=== PATIENT | male | born 1955 | race African-American/Black ===

== ENCOUNTER 2022-09-24 15:43 | Inpatient (IN) | payer MEDICARE, BC ==
[~2022-09-24] VITALS: Ht 177.8 cm; Wt 78.5 kg
[~2022-09-24 15:43] MED LIST: AMA4 PO; ASPI-1406 PO; CETI5TAB5 PO; CRES10 PO; DILT180C51 PO; ICOS1CAP PO; LEVO50TA PO; METO25TA6 PO; MONT10TA21 PO; TICA90TA PO; XAR15 PO
[2022-09-24] MEDS ORDERED: SODIUM CHLORIDE 0.9% 250 ML IV ONE (22:45)
[2022-09-24 23:02] LABS: BASOPHILS % 0.3 % (0.0-2.0); EOSINOPHILS % 0.6 % (0.0-5.0); HEMATOCRIT. 44.9 % (42.0-52.0); HEMOGLOBIN. 14.9 g/dL (14.0-18.0); LYMPHOCYTES % 15.1 % (20.0-50.0); MEAN CORPUSCULAR HEMOGLOBIN 25.5 pg (28.0-32.0); MEAN CORPUSCULAR VOLUME 76.9 fL (80.0-94.0); MEAN PLATELET VOLUME 7.1 fl (7.4-10.4); MONOCYTES % 11.5 % (2.0-8.0); NEUTROPHILS % 72.5 % (40.0-76.0); PLATELET 317 x1000/uL (130-400); RED BLOOD CELL COUNT 5.84 mill/uL (4.7-6.1); RED CELL DISTRIBUTION WIDTH 14.6 % (11.6-14.6)
[2022-09-24 23:05] LABS: CHLORIDE 101 mEq/L (98-107)
[2022-09-24 23:16] LABS: ETHANOL BLOOD < 10 mg/dL
[2022-09-25] VITALS (9 sets, daily range): BP systolic 126–141; BP diastolic 70–95
[2022-09-25] MEDS ORDERED: ASPIRIN 325MG EC TABLET PO NR (01:15)
[2022-09-25] MEDS ORDERED: DILTIAZEM HCL 5MG/ML 5ML VIAL IV ONE (01:45)
[2022-09-25] MEDS ORDERED: DILTIAZEM HCL 120MG CAPSULE ER 24HR PO ONE (03:00)
[2022-09-25 04:16] LABS: *AMPHETAMINES SCREEN URINE NEGATIVE (NEGATIVE); *BARBITURATES SCREEN URINE NEGATIVE (NEGATIVE); *BENZODIAZEPINES SCREEN URINE NEGATIVE (NEGATIVE); *COCAINE SCREEN URINE NEGATIVE (NEGATIVE); CANNABINOID URINE SCREEN NEGATIVE (NEGATIVE); METHADONE URINE SCREEN NEGATIVE (NEGATIVE); OPIATES URINE SCREEN NEGATIVE (NEGATIVE); PHENCYCLIDINE URINE SCREEN NEGATIVE (NEGATIVE)
[2022-09-25] MEDS ORDERED: ACETAMINOPHEN 650MG/20.3ML UDC PO PRN (08:15)
[2022-09-25] MEDS ORDERED: ONDANSETRON HCL 4MG/2ML INJ IV PRN (08:15)
[2022-09-25] MEDS ORDERED: DEXTROSE 50% WATER 50ML SYRINGE IV PRN (08:15)
[2022-09-25] MEDS ORDERED: CLONIDINE 0.1MG TABLET PO PRN (08:45)
[2022-09-25] MEDS ORDERED: ASPIRIN 81MG TABLET PO SCH (09:00)
[2022-09-25] MEDS: TICAGRELOR 90 MG TABLET PO SCH ×3 (09:00→17:25)
[2022-09-25] MEDS ORDERED: ENOXAPARIN 40MG/0.4ML SYR SUBCUT SCH (09:00)
[2022-09-25] MEDS ORDERED: CETIRIZINE 10MG TABLET PO SCH (09:30)
[2022-09-25] MEDS ORDERED: NALOXONE HCL 0.4MG/ML VIAL IV PRN (09:45)
[2022-09-25] MEDS: METOPROLOL TARTRATE 25MG TABLET PO SCH ×2 (09:54→20:53)
[2022-09-25] MEDS ORDERED: DICL50TA7 PO (09:54)
[2022-09-25] MEDS: DILTIAZEM HCL 180MG CAPSULE CD 24HR PO SCH (09:55)
[2022-09-25] MEDS: TRAMADOL 50MG TABLET PO PRN ×2 (09:55→21:02)
[2022-09-25 11:09] LABS: BASOPHILS % 0.3 % (0.0-2.0); EOSINOPHILS % 0.3 % (0.0-5.0); HEMOGLOBIN. 13.4 g/dL (14.0-18.0); LYMPHOCYTES % 11.5 % (20.0-50.0); MEAN CORPUSCULAR HEMOGLOBIN 25.2 pg (28.0-32.0); MEAN CORPUSCULAR VOLUME 77.3 fL (80.0-94.0); MEAN PLATELET VOLUME 7.2 fl (7.4-10.4); MONOCYTES % 7.8 % (2.0-8.0); NEUTROPHILS % 80.1 % (40.0-76.0); PLATELET 274 x1000/uL (130-400); RED CELL DISTRIBUTION WIDTH 15.4 % (11.6-14.6)
[2022-09-25 11:16] LABS: CHLORIDE 100 mEq/L (98-107)
[2022-09-25] MEDS: BLOOD SUGAR DIAGNOSTIC STRIP TEST SCH ×3 (11:50→20:54)
[2022-09-25] MEDS: INSULIN LISPRO 100 UNITS/ML SUBCUT SCH ×3 (12:09→20:52)
[2022-09-25] MEDS: DICLOFENAC SODIUM 50 MG DR TABLET PO SCH (17:25)
[2022-09-25] MEDS ORDERED: RIVAROXABAN 15 MG TABLET PO SCH (21:00)
[2022-09-25] MEDS ORDERED: MONTELUKAST SODIUM 10MG TABLET PO SCH (21:00)
[2022-09-26] VITALS: BP 108/58
[2022-09-26] MEDS ORDERED: ACETAMINOPHEN 325MG TABLET PO PRN ×2 (00:15)
[2022-09-26 04:00] VITALS: BP 115/59
[2022-09-26] MEDS ORDERED: LEVOTHYROXINE SODIUM 50MCG TABLET PO SCH (06:50)
[2022-09-26] MEDS: BLOOD SUGAR DIAGNOSTIC STRIP TEST SCH ×3 (07:04→16:18)
[2022-09-26 07:30] VITALS: BP 132/79
[2022-09-26] MEDS: METOPROLOL TARTRATE 25MG TABLET PO SCH (07:55)
[2022-09-26] MEDS: TRAMADOL 50MG TABLET PO PRN (07:55)
[2022-09-26] MEDS: DILTIAZEM HCL 180MG CAPSULE CD 24HR PO SCH (07:55)
[2022-09-26] MEDS: TICAGRELOR 90 MG TABLET PO SCH (07:56)
[2022-09-26] MEDS: DICLOFENAC SODIUM 50 MG DR TABLET PO SCH ×2 (07:56→16:41)
[2022-09-26] MEDS: INSULIN LISPRO 100 UNITS/ML SUBCUT SCH ×3 (07:56→17:32)
[2022-09-26 10:52] VITALS: BP 118/65
[2022-09-26] MEDS ORDERED: CLOPIDOGREL 75MG TABLET PO SCH (11:45)
[2022-09-26 15:00] VITALS: BP 138/57
[2022-09-26] MEDS ORDERED: DIGOXIN 500MCG/2ML AMP IV NR (16:00)
[2022-09-26] MEDS ORDERED: DILT120C88 PO (16:23)
[2022-09-26 17:18] VITALS: BP 137/76
[2022-09-27] MEDS ORDERED: DILTIAZEM HCL 120MG CAPSULE ER 24HR PO SCH (09:00)
== END 2022-09-26 23:23 | disposition home or self-care (01) | DRG 282 ==
LOC: ER 15:43 → 3WST 09-25 01:15 → EDBEDREQTM 09-25 01:26 → EDBEDREQ 09-25 01:26 → ENRESERV 09-25 03:57
PROVIDERS: ADMIT Internal Medicine; ATTEND Internal Medicine
DX: I48.19 Other persistent atrial fibrillation (principal); I21.A1 Myocardial infarction type 2; E11.65 Type 2 diabetes mellitus with hyperglycemia; E78.00 Pure hypercholesterolemia, unspecified; E03.9 Hypothyroidism, unspecified; I25.10 Atherosclerotic heart disease of native coronary artery without angina pectoris; J45.909 Unspecified asthma, uncomplicated; Z20.822 Contact with and (suspected) exposure to COVID-19; E78.5 Hyperlipidemia, unspecified; I35.0 Nonrheumatic aortic (valve) stenosis; I10 Essential (primary) hypertension; R77.8 Other specified abnormalities of plasma proteins; Z95.5 Presence of coronary angioplasty implant and graft; Z79.899 Other long term (current) drug therapy
CPT/HCPCS: 36415; 71045; 80053; 80305; 80320; 82962; 83036; 83880; 84484; 85025; 87426; 93005; 99285; J1160; J1815; J3490; J7050; G0480; J8499

== ENCOUNTER 2023-01-01 11:59 | Inpatient (IN) | payer MEDICARE, BC ==
[~2023-01-01] VITALS: Ht 177.8 cm; Wt 60.3 kg
[~2023-01-01 11:59] MED LIST changes: -ASPI-1406 PO; +DICL50TA7 PO; +DILT120C88 PO; +MONT-46 PO; -MONT10TA21 PO; -TICA90TA PO
[2023-01-01 13:08] LABS: BASOPHILS % 0.1 % (0.0-2.0); HEMATOCRIT. 30.4 % (42.0-52.0); HEMOGLOBIN. 9.8 g/dL (14.0-18.0); LYMPHOCYTES % 10.8 % (20.0-50.0); MEAN CORPUSCULAR HEMOGLOBIN 23.1 pg (28.0-32.0); MEAN CORPUSCULAR VOLUME 71.6 fL (80.0-94.0); MEAN PLATELET VOLUME 6.6 fl (7.4-10.4); MONOCYTES % 4.7 % (2.0-8.0); NEUTROPHILS % 84.4 % (40.0-76.0); PLATELET 410 x1000/uL (130-400); RED BLOOD CELL COUNT 4.24 mill/uL (4.7-6.1); RED CELL DISTRIBUTION WIDTH 20.6 % (11.6-14.6)
[2023-01-01 13:10] LABS: CHLORIDE 99 mEq/L (98-107)
[2023-01-01 13:21] LABS: INR 1.3; PROTHROMBIN TIME 13.9 sec (9.6-11.0)
[2023-01-01] MEDS ORDERED: IOHEXOL-300 100 ML BOTTLE ONE (14:37)
[2023-01-01 18:00] VITALS: BP 101/62
[2023-01-01] MEDS ORDERED: APIX5TAB PO (18:01)
[2023-01-01] MEDS ORDERED: LEVO100T9 PO (18:01)
[2023-01-01] MEDS ORDERED: DEXA1TAB PO (18:01)
[2023-01-01] MEDS ORDERED: AMI2 PO (18:01)
[2023-01-01] MEDS ORDERED: DEXTL MT (18:01)
[2023-01-01] MEDS ORDERED: OMEP20CA14 PO (18:01)
[2023-01-01] MEDS ORDERED: CLONIDINE 0.1MG TABLET PO PRN (18:30)
[2023-01-01] MEDS ORDERED: ONDANSETRON HCL 4MG/2ML INJ IV PRN (18:30)
[2023-01-01] MEDS ORDERED: ACETAMINOPHEN 325MG TABLET PO PRN ×2 (18:30)
[2023-01-01] MEDS ORDERED: DEXTROSE 50% WATER 50ML SYRINGE IV PRN (18:30)
[2023-01-01] MEDS ORDERED: IPRATROPIUM/ALBUTEROL 0.5-3(2.5)MG/3ML NEB NEB PRN (18:30)
[2023-01-01] MEDS ORDERED: DIPHENHYDRAMINE 50MG/ML VIAL IV PRN (18:30)
[2023-01-01] MEDS ORDERED: MAGNESIUM/ALUMINUM HYDROXIDE/SIMETHICONE 30ML UDC PO PRN (18:30)
[2023-01-01] MEDS ORDERED: GUAIFENESIN 200MG/10ML SUGAR FREE UDC PO PRN (18:30)
[2023-01-01] MEDS ORDERED: ALBUTEROL (0.083%) 2.5MG/3ML NEB HHN PRN (19:15)
[2023-01-01] MEDS ORDERED: IPRATROPIUM BROMIDE (0.02%) 0.5MG/2.5ML NEB HHN PRN (19:15)
[2023-01-01 20:00] VITALS: BP 98/66
[2023-01-01] MEDS: BLOOD SUGAR DIAGNOSTIC STRIP TEST SCH (20:19)
[2023-01-01] MEDS: INSULIN LISPRO 100 UNITS/ML SUBCUT SCH (20:19)
[2023-01-01] MEDS: SODIUM CHLORIDE 0.9% 1,000 ML IV SCH (20:39)
[2023-01-01] MEDS: OMEPRAZOLE 20MG CAPSULE EXTENDED RELEASE PO SCH (20:39)
[2023-01-02] VITALS (10 sets, daily range): BP systolic 91–133; BP diastolic 49–76
[2023-01-02 06:35] LABS: BASOPHILS % 0.2 % (0.0-2.0); HEMATOCRIT. 32.7 % (42.0-52.0); HEMOGLOBIN. 10.7 g/dL (14.0-18.0); LYMPHOCYTES % 14.2 % (20.0-50.0); MEAN CORPUSCULAR HEMOGLOBIN 23.9 pg (28.0-32.0); MEAN CORPUSCULAR VOLUME 72.9 fL (80.0-94.0); MONOCYTES % 6.2 % (2.0-8.0); NEUTROPHILS % 79.4 % (40.0-76.0); PLATELET 344 x1000/uL (130-400); RED BLOOD CELL COUNT 4.49 mill/uL (4.7-6.1); RED CELL DISTRIBUTION WIDTH 19.7 % (11.6-14.6)
[2023-01-02] MEDS: BLOOD SUGAR DIAGNOSTIC STRIP TEST SCH ×4 (06:43→20:51)
[2023-01-02 07:15] LABS: CHLORIDE 103 mEq/L (98-107)
[2023-01-02 07:29] LABS: PHOSPHORUS 3.3 mg/dL (2.5-4.9)
[2023-01-02] MEDS: INSULIN LISPRO 100 UNITS/ML SUBCUT SCH ×4 (08:10→20:51)
[2023-01-02] MEDS: DEXAMETHASONE 2MG TABLET PO SCH (08:16)
[2023-01-02] MEDS: OMEPRAZOLE 20MG CAPSULE EXTENDED RELEASE PO SCH ×2 (08:16→20:50)
[2023-01-02] MEDS: AMIODARONE HCL 200 MG TABLET PO SCH (08:16)
[2023-01-02] MEDS: LEVOTHYROXINE SODIUM 100MCG TABLET PO SCH (08:20)
[2023-01-02] MEDS: SODIUM CHLORIDE 0.9% 1,000 ML IV SCH ×2 (08:20→16:17)
[2023-01-02] MEDS ORDERED: NON FORMULARY PATIENT HOME MED XX ONE (09:00)
[2023-01-02] MEDS ORDERED: DILTIAZEM HCL 60MG TABLET PO SCH ×2 (09:00→09:30)
[2023-01-02] MEDS ORDERED: METO-411 PO (09:27)
[2023-01-02] MEDS ORDERED: DILTIAZEM HCL 120MG CAPSULE ER 24HR PO SCH (09:30)
[2023-01-02] MEDS ORDERED: DILTIAZEM HCL 5MG/ML 5ML VIAL IV SCH (10:00)
[2023-01-02] MEDS: METOPROLOL TARTRATE 100MG TABLET PO SCH ×3 (10:28→20:51)
[2023-01-02] MEDS ORDERED: POTASSIUM CHLORIDE 20MEQ/PACKET PO SCH (11:00)
[2023-01-02] MEDS ORDERED: MAGNESIUM 2 G PREMIX 50 ML IV SCH (12:00)
[2023-01-02] MEDS: CLOPIDOGREL 75MG TABLET PO SCH (12:02)
[2023-01-02] MEDS ORDERED: METOPROLOL TARTRATE 100MG TABLET PO SCH (14:00)
[2023-01-02] MEDS: MONTELUKAST SODIUM 10MG TABLET PO SCH (16:17)
[2023-01-02] MEDS ORDERED: NA PHOS,M-B/NA PHOS,DI-BA ENEMA 118ML PR NR ×2 (18:30→20:00)
[2023-01-03] VITALS: BP 141/76
[2023-01-03] MEDS: SODIUM CHLORIDE 0.9% 1,000 ML IV SCH ×3 (01:15→21:59)
[2023-01-03 04:00] VITALS: BP 116/73
[2023-01-03] MEDS: BLOOD SUGAR DIAGNOSTIC STRIP TEST SCH ×4 (05:54→21:00)
[2023-01-03] MEDS: INSULIN LISPRO 100 UNITS/ML SUBCUT SCH ×4 (05:54→21:59)
[2023-01-03] MEDS: METOPROLOL TARTRATE 100MG TABLET PO SCH ×3 (05:54→22:00)
[2023-01-03] MEDS: LEVOTHYROXINE SODIUM 100MCG TABLET PO SCH (05:54)
[2023-01-03] MEDS: OMEPRAZOLE 20MG CAPSULE EXTENDED RELEASE PO SCH ×2 (05:54→21:59)
[2023-01-03 06:38] LABS: BASOPHILS % 0.2 % (0.0-2.0); HEMATOCRIT. 35.3 % (42.0-52.0); HEMOGLOBIN. 11.5 g/dL (14.0-18.0); LYMPHOCYTES % 12.1 % (20.0-50.0); MEAN CORPUSCULAR VOLUME 73.9 fL (80.0-94.0); MEAN PLATELET VOLUME 6.9 fl (7.4-10.4); MONOCYTES % 5.7 % (2.0-8.0); PLATELET 378 x1000/uL (130-400); RED BLOOD CELL COUNT 4.78 mill/uL (4.7-6.1)
[2023-01-03 07:34] LABS: CHLORIDE 102 mEq/L (98-107)
[2023-01-03 07:42] LABS: TOTAL IRON BINDING CAPACITY 168 ug/dL (250-450)
[2023-01-03 08:11] VITALS: BP 100/70
[2023-01-03] MEDS: CLOPIDOGREL 75MG TABLET PO SCH (08:28)
[2023-01-03] MEDS: AMIODARONE HCL 200 MG TABLET PO SCH (08:28)
[2023-01-03] MEDS: DEXAMETHASONE 2MG TABLET PO SCH (08:28)
[2023-01-03 11:43] VITALS: BP 131/81
[2023-01-03 15:42] VITALS: BP 117/71
[2023-01-03] MEDS: MONTELUKAST SODIUM 10MG TABLET PO SCH (16:04)
[2023-01-03 20:00] VITALS: BP 133/74
[2023-01-04] VITALS: BP 145/79
[2023-01-04 04:00] VITALS: BP 137/65
[2023-01-04] MEDS: METOPROLOL TARTRATE 100MG TABLET PO SCH ×2 (05:02→14:00)
[2023-01-04 06:07] LABS: BASOPHILS % 0.1 % (0.0-2.0); HEMATOCRIT. 35.6 % (42.0-52.0); HEMOGLOBIN. 11.3 g/dL (14.0-18.0); LYMPHOCYTES % 12.6 % (20.0-50.0); MEAN CORPUSCULAR HEMOGLOBIN 23.5 pg (28.0-32.0); MEAN CORPUSCULAR VOLUME 73.8 fL (80.0-94.0); MONOCYTES % 5.4 % (2.0-8.0); NEUTROPHILS % 81.9 % (40.0-76.0); PLATELET 414 x1000/uL (130-400); RED BLOOD CELL COUNT 4.82 mill/uL (4.7-6.1)
[2023-01-04] MEDS: SODIUM CHLORIDE 0.9% 1,000 ML IV SCH (06:48)
[2023-01-04] MEDS: BLOOD SUGAR DIAGNOSTIC STRIP TEST SCH ×2 (07:23→12:40)
[2023-01-04] MEDS: INSULIN LISPRO 100 UNITS/ML SUBCUT SCH ×3 (07:23→16:34)
[2023-01-04 08:28] VITALS: BP 138/57
[2023-01-04] MEDS: DEXAMETHASONE 2MG TABLET PO SCH (08:53)
[2023-01-04] MEDS: AMIODARONE HCL 200 MG TABLET PO SCH (08:53)
[2023-01-04] MEDS: LEVOTHYROXINE SODIUM 100MCG TABLET PO SCH (08:53)
[2023-01-04] MEDS: CLOPIDOGREL 75MG TABLET PO SCH (08:53)
[2023-01-04] MEDS: OMEPRAZOLE 20MG CAPSULE EXTENDED RELEASE PO SCH (08:53)
[2023-01-04 11:36] VITALS: BP 130/55
[2023-01-04 13:51] VITALS: BP 130/55
[2023-01-04 15:16] VITALS: BP 92/57
[2023-01-04] MEDS: MONTELUKAST SODIUM 10MG TABLET PO SCH (16:34)
[2023-01-05 19:02] LABS: FOLIC ACID (FOLATE) SERUM 4.7 ng/mL (>5.38)
== END 2023-01-04 19:34 | disposition home health service (06) | DRG 377 ==
LOC: ER 12:12 → 7WST 15:51 → ENRESERV 16:04
PROVIDERS: ADMIT Internal Medicine; ATTEND Internal Medicine
PROC: 30233N1 Transfusion of Nonautologous Red Blood Cells into Peripheral Vein, Percutaneous Approach (ICD-10-PCS; principal; 2023-01-02)
DX: K92.2 Gastrointestinal hemorrhage, unspecified (principal); E43 Unspecified severe protein-calorie malnutrition; K63.3 Ulcer of intestine; I48.20 Chronic atrial fibrillation, unspecified; Z68.1 Body mass index [BMI] 19.9 or less, adult; K56.41 Fecal impaction; J45.909 Unspecified asthma, uncomplicated; E03.9 Hypothyroidism, unspecified; I25.10 Atherosclerotic heart disease of native coronary artery without angina pectoris; E11.51 Type 2 diabetes mellitus with diabetic peripheral angiopathy without gangrene; E78.00 Pure hypercholesterolemia, unspecified; I10 Essential (primary) hypertension; I25.2 Old myocardial infarction; Z86.718 Personal history of other venous thrombosis and embolism; Z86.73 Personal history of transient ischemic attack (TIA), and cerebral infarction without residual deficits; Z92.3 Personal history of irradiation; Z92.21 Personal history of antineoplastic chemotherapy; Z79.01 Long term (current) use of anticoagulants; Z79.899 Other long term (current) drug therapy
CPT/HCPCS: 36415; 74177; 80048; 80053; 82040; 82270; 82607; 82728; 82746; 82962; 83036; 83540; 83550; 83605; 83735; 84100; 84134; 84443; 85025; 85044; 86850; 86900; 86920; 94640; 97162; 97530; 99291; J1815; J3475; J3490; J7030; J8540; P9016; Q9967

== ENCOUNTER 2023-01-09 06:12 | Inpatient (IN) | payer MEDICARE, BC ==
[~2023-01-09] VITALS: Ht 177.8 cm; Wt 60.1 kg
[~2023-01-09 06:12] MED LIST changes: +AMI2 PO; +APIX5TAB PO; +DEXA1TAB PO; +DEXTL MT; +LEVO100T9 PO; +METO-411 PO; +OMEP20CA14 PO
[2023-01-09 09:31] LABS: BASOPHILS % 0.1 % (0.0-2.0); HEMATOCRIT. 33.7 % (42.0-52.0); LYMPHOCYTES % 9.1 % (20.0-50.0); MEAN CORPUSCULAR HEMOGLOBIN 23.9 pg (28.0-32.0); MEAN PLATELET VOLUME 6.8 fl (7.4-10.4); MONOCYTES % 5.7 % (2.0-8.0); NEUTROPHILS % 85.1 % (40.0-76.0); PLATELET 393 x1000/uL (130-400); RED BLOOD CELL COUNT 4.61 mill/uL (4.7-6.1); RED CELL DISTRIBUTION WIDTH 20.2 % (11.6-14.6)
[2023-01-09 09:36] LABS: CHLORIDE 100 mEq/L (98-107)
[2023-01-09] MEDS ORDERED: CEFTRIAXONE 1GM PREMIX 50 ML IV NR (10:45)
[2023-01-09] MEDS ORDERED: POTASSIUM CHLORIDE INJ 40 MEQ in DEXT 5% WATER 250 ML IV NR (11:30)
[2023-01-09] MEDS ORDERED: AZITHROMYCIN 500 MG in DEXT 5% WATER 250 ML IV SCH ×2 (12:00→18:30)
[2023-01-09 15:39] LABS: CLARITY URINE CLOUDY (CLEAR); COLOR URINE YELLOW (YELLOW); KETONES URINE TRACE (NEGATIVE); LEUKOCYTE ESTERASE URINE NEGATIVE (NEGATIVE); NITRITE URINE NEGATIVE (NEGATIVE); OCCULT BLOOD URINE 1+ (NEGATIVE); PROTEIN URINE TRACE (NEGATIVE); SPECIFIC GRAVITY URINE 1.014 (1.005-1.030); UROBILINOGEN URINE 0.2 E.U./dL (0.2-1.0)
[2023-01-09] MEDS ORDERED: IPRATROPIUM/ALBUTEROL 0.5-3(2.5)MG/3ML NEB HHN PRN (17:15)
[2023-01-09] MEDS ORDERED: CEFTRIAXONE 2 G in DEXTROSE 5% WATER 50 ML IV SCH (17:15)
[2023-01-09] MEDS ORDERED: IPRATROPIUM/ALBUTEROL 0.5-3(2.5)MG/3ML NEB HHN SCH (18:00)
[2023-01-09 18:18] LABS: BG BASE EXCESS 8.8 mmol/L (-2.0-2.0); BG CARBOXYHEMOGLOBIN 0.8 % (0.5-1.5); BG FRACTION INSPIRED OXYGEN 100; BG HCO3 ACT 33.9 mmol/L (22.0-26.0); BG METHEMOGLOBIN 0.3 % (0.0-1.5); BG OXYGEN SATURATION 88.9 % (92.0-98.5); BG OXYHEMOGLOBIN 87.9 % (94.0-97.0); BG PCO2 48.4 mmHg (35.0-45.0); BG PH 7.463 (7.350-7.450); BG PO2 53.5 mmHg (75.0-100.0); BG SAMPLE SITE LEFT RADIAL; BG TOTAL HEMOGLOBIN 12.7 g/dL (12.0-18.0); BG VENT MODE MASK - NRB
[2023-01-09 18:30] VITALS: BP 112/67
[2023-01-09] MEDS ORDERED: POLY17PO43 MT (18:34)
[2023-01-09] MEDS ORDERED: CLOP-31 MT (18:34)
[2023-01-09 19:13] VITALS: BP 112/67
[2023-01-09 19:40] LABS: D-DIMER 1.62 mg/L FEU (<0.50); INR 1.4; PROTHROMBIN TIME 14.4 sec (9.6-11.0)
[2023-01-09 20:47] VITALS: BP 122/69
[2023-01-09] MEDS: GUAIFENESIN 600MG ER TABLET PO SCH (21:15)
[2023-01-09] MEDS ORDERED: DEXT 5% WATER + KCL 40MEQ/L 1,000 ML IV SCH (22:30)
[2023-01-09] MEDS: METOPROLOL TARTRATE 100MG TABLET PO SCH (23:44)
[2023-01-10] VITALS: BP 132/79
[2023-01-10] MEDS: POTASSIUM CHLORIDE INJ 40 MEQ in DEXTROSE 5% WATER 1,000 ML IV SCH ×2 (01:33→21:04)
[2023-01-10] MEDS ORDERED: IOHEXOL-350 100 ML BOTTLE ONE (02:57)
[2023-01-10] MEDS: IPRATROPIUM/ALBUTEROL 0.5-3(2.5)MG/3ML NEB HHN SCH ×5 (03:23→19:42)
[2023-01-10 04:00] VITALS: BP 125/75
[2023-01-10] MEDS: METOPROLOL TARTRATE 100MG TABLET PO SCH ×3 (06:22→21:07)
[2023-01-10] MEDS: BLOOD SUGAR DIAGNOSTIC STRIP TEST SCH ×4 (06:22→21:08)
[2023-01-10] MEDS ORDERED: DEXTROSE 50% WATER 50ML SYRINGE IV PRN (07:30)
[2023-01-10 08:00] VITALS: BP 130/71
[2023-01-10] MEDS: APIXABAN 5 MG TABLET PO SCH ×2 (08:36→16:46)
[2023-01-10] MEDS: LEVOTHYROXINE SODIUM 100MCG TABLET PO SCH (08:36)
[2023-01-10] MEDS: AMIODARONE HCL 200 MG TABLET PO SCH (08:36)
[2023-01-10] MEDS: GUAIFENESIN 600MG ER TABLET PO SCH ×2 (08:36→21:05)
[2023-01-10] MEDS: DEXAMETHASONE 1MG TABLET PO SCH (08:37)
[2023-01-10] MEDS: INSULIN LISPRO 100 UNITS/ML SUBCUT SCH ×4 (08:39→21:16)
[2023-01-10] MEDS: OMEPRAZOLE 20MG CAPSULE EXTENDED RELEASE PO SCH (08:47)
[2023-01-10] MEDS ORDERED: CEFTRIAXONE 1GM PREMIX 50 ML IV SCH (09:00)
[2023-01-10] MEDS: ACETYLCYSTEINE 200MG/ML 20% VIAL 10ML INH SCH (09:31)
[2023-01-10 11:13] LABS: HEMATOCRIT. 32.2 % (42.0-52.0); HEMOGLOBIN. 10.5 g/dL (14.0-18.0); MEAN CORPUSCULAR HEMOGLOBIN 23.9 pg (28.0-32.0); MEAN CORPUSCULAR VOLUME 73.1 fL (80.0-94.0); PLATELET 360 x1000/uL (130-400); RED BLOOD CELL COUNT 4.41 mill/uL (4.7-6.1); RED CELL DISTRIBUTION WIDTH 20.3 % (11.6-14.6)
[2023-01-10 11:24] LABS: CHLORIDE 102 mEq/L (98-107)
[2023-01-10 11:39] LABS: PHOSPHORUS 2.6 mg/dL (2.5-4.9); T4 FREE 1.17 ng/dL (0.76-1.46)
[2023-01-10 12:00] VITALS: BP 128/79
[2023-01-10] MEDS ORDERED: MAGNESIUM 2 G PREMIX 50 ML IV NR (13:00)
[2023-01-10 14:06] LABS: PLATELET ESTIMATE NORMAL
[2023-01-10] MEDS: TRAMADOL 50MG TABLET PO PRN (14:22)
[2023-01-10] MEDS ORDERED: NALOXONE HCL 0.4MG/ML VIAL IV PRN (14:30)
[2023-01-10 16:00] VITALS: BP 107/59
[2023-01-10 20:00] VITALS: BP 104/51
[2023-01-10] MEDS: LEVOFLOXACIN 750MG PREMIX 150 ML IV SCH (21:04)
[2023-01-10] MEDS: METRONIDAZOLE 500MG TABLET PO SCH (21:11)
[2023-01-10] MEDS ORDERED: ALBUTEROL (0.083%) 2.5MG/3ML NEB HHN PRN (21:30)
[2023-01-10] MEDS ORDERED: IPRATROPIUM BROMIDE (0.02%) 0.5MG/2.5ML NEB HHN PRN (21:30)
[2023-01-10] MEDS: IPRATROPIUM BROMIDE (0.02%) 0.5MG/2.5ML NEB HHN SCH (23:50)
[2023-01-10] MEDS: ALBUTEROL (0.083%) 2.5MG/3ML NEB HHN SCH (23:50)
[2023-01-11] VITALS: BP 111/61
[2023-01-11] MEDS: IPRATROPIUM BROMIDE (0.02%) 0.5MG/2.5ML NEB HHN SCH ×5 (03:59→22:13)
[2023-01-11 04:00] VITALS: BP 99/73
[2023-01-11] MEDS: ALBUTEROL (0.083%) 2.5MG/3ML NEB HHN SCH ×5 (04:00→22:13)
[2023-01-11] MEDS: METOPROLOL TARTRATE 100MG TABLET PO SCH ×4 (06:00→22:01)
[2023-01-11] MEDS: METRONIDAZOLE 500MG TABLET PO SCH ×3 (06:05→22:00)
[2023-01-11] MEDS: BLOOD SUGAR DIAGNOSTIC STRIP TEST SCH ×4 (06:28→20:40)
[2023-01-11 07:14] LABS: HEMATOCRIT. 29.8 % (42.0-52.0); HEMOGLOBIN. 9.4 g/dL (14.0-18.0); MEAN CORPUSCULAR HEMOGLOBIN 23.1 pg (28.0-32.0); MEAN CORPUSCULAR VOLUME 73.3 fL (80.0-94.0); MEAN PLATELET VOLUME 6.9 fl (7.4-10.4); PLATELET 288 x1000/uL (130-400); RED BLOOD CELL COUNT 4.07 mill/uL (4.7-6.1); RED CELL DISTRIBUTION WIDTH 19.7 % (11.6-14.6)
[2023-01-11 08:02] VITALS: BP 85/40
[2023-01-11] MEDS: INSULIN LISPRO 100 UNITS/ML SUBCUT SCH ×4 (08:10→20:40)
[2023-01-11 08:26] LABS: CHLORIDE 102 mEq/L (98-107)
[2023-01-11 08:42] LABS: PHOSPHORUS 2.3 mg/dL (2.5-4.9)
[2023-01-11 09:06] LABS: BG BASE EXCESS 7.4 mmol/L (-2.0-2.0); BG CARBOXYHEMOGLOBIN 0.5 % (0.5-1.5); BG DEOXYHEMOGLOBIN 0.6 % (0.0-5.0); BG FRACTION INSPIRED OXYGEN 100; BG HCO3 ACT 31.6 mmol/L (22.0-26.0); BG METHEMOGLOBIN 0.3 % (0.0-1.5); BG OXYGEN SATURATION 99.4 % (92.0-98.5); BG OXYHEMOGLOBIN 98.6 % (94.0-97.0); BG PH 7.484 (7.350-7.450); BG PO2 212.5 mmHg (75.0-100.0); BG SAMPLE SITE LEFT BRACHIAL; BG TOTAL HEMOGLOBIN 10.6 g/dL (12.0-18.0); BG VENT MODE VAPOTHERM
[2023-01-11] MEDS: OMEPRAZOLE 20MG CAPSULE EXTENDED RELEASE PO SCH (09:34)
[2023-01-11] MEDS: LEVOTHYROXINE SODIUM 100MCG TABLET PO SCH (09:34)
[2023-01-11] MEDS: GUAIFENESIN 600MG ER TABLET PO SCH ×2 (09:34→22:00)
[2023-01-11] MEDS: AMIODARONE HCL 200 MG TABLET PO SCH (09:34)
[2023-01-11] MEDS: DEXAMETHASONE 1MG TABLET PO SCH (09:34)
[2023-01-11] MEDS: APIXABAN 5 MG TABLET PO SCH ×2 (09:35→16:34)
[2023-01-11 11:19] VITALS: BP 104/68
[2023-01-11] MEDS: TRAMADOL 50MG TABLET PO PRN ×2 (12:13→16:33)
[2023-01-11 15:24] VITALS: BP 104/59
[2023-01-11] MEDS: DOCUSATE SODIUM SUGAR FREE 100MG/10ML UDC NG SCH (16:34)
[2023-01-11] MEDS ORDERED: POTASSIUM-SODIUM PHOSPHATE POWDER PACKET PO NR (18:00)
[2023-01-11 18:47] LABS: PLATELET ESTIMATE NORMAL
[2023-01-11] MEDS: POTASSIUM CHLORIDE INJ 40 MEQ in DEXTROSE 5% WATER 1,000 ML IV SCH (18:52)
[2023-01-11 20:00] VITALS: BP 100/47
[2023-01-11] MEDS: LEVOFLOXACIN 750MG PREMIX 150 ML IV SCH (20:19)
[2023-01-11] MEDS: MUPIROCIN 2% OINT 15GM NS SCH (20:20)
[2023-01-11] MEDS ORDERED: DIGOXIN 500MCG/2ML AMP IV ONE (21:00)
[2023-01-11] MEDS ORDERED: DIGOXIN 500MCG/2ML AMP IV NR (21:30)
[2023-01-11] MEDS: ACETYLCYSTEINE 200MG/ML 20% VIAL 10ML INH SCH (22:18)
[2023-01-12] VITALS: BP 98/50
[2023-01-12] MEDS: IPRATROPIUM BROMIDE (0.02%) 0.5MG/2.5ML NEB HHN SCH ×5 (00:48→20:40)
[2023-01-12] MEDS: ALBUTEROL (0.083%) 2.5MG/3ML NEB HHN SCH ×5 (00:48→20:40)
[2023-01-12 04:03] VITALS: BP 107/44
[2023-01-12] MEDS: METRONIDAZOLE 500MG TABLET PO SCH ×3 (05:40→22:03)
[2023-01-12] MEDS: METOPROLOL TARTRATE 100MG TABLET PO SCH ×3 (05:43→22:02)
[2023-01-12 07:23] LABS: HEMATOCRIT. 27.1 % (42.0-52.0); HEMOGLOBIN. 8.8 g/dL (14.0-18.0); MEAN CORPUSCULAR HEMOGLOBIN 24.1 pg (28.0-32.0); MEAN PLATELET VOLUME 6.8 fl (7.4-10.4); PLATELET 265 x1000/uL (130-400); RED BLOOD CELL COUNT 3.66 mill/uL (4.7-6.1); RED CELL DISTRIBUTION WIDTH 19.5 % (11.6-14.6)
[2023-01-12] MEDS: BLOOD SUGAR DIAGNOSTIC STRIP TEST SCH ×4 (07:40→20:54)
[2023-01-12 07:56] LABS: CHLORIDE 97 mEq/L (98-107)
[2023-01-12 08:00] VITALS: BP 119/61
[2023-01-12] MEDS: INSULIN LISPRO 100 UNITS/ML SUBCUT SCH ×4 (08:10→20:54)
[2023-01-12] MEDS: MUPIROCIN 2% OINT 15GM NS SCH ×2 (09:00→20:54)
[2023-01-12] MEDS: APIXABAN 5 MG TABLET PO SCH ×2 (10:11→18:31)
[2023-01-12] MEDS: DEXAMETHASONE 1MG TABLET PO SCH (10:11)
[2023-01-12] MEDS: GUAIFENESIN 600MG ER TABLET PO SCH ×2 (10:11→20:54)
[2023-01-12] MEDS: DOCUSATE SODIUM SUGAR FREE 100MG/10ML UDC NG SCH ×2 (10:11→18:31)
[2023-01-12] MEDS: LEVOTHYROXINE SODIUM 100MCG TABLET PO SCH (10:11)
[2023-01-12] MEDS: AMIODARONE HCL 200 MG TABLET PO SCH (10:11)
[2023-01-12] MEDS: OMEPRAZOLE 20MG CAPSULE EXTENDED RELEASE PO SCH (10:11)
[2023-01-12 11:18] LABS: PLATELET ESTIMATE NORMAL
[2023-01-12] MEDS: ACETYLCYSTEINE 200MG/ML 20% VIAL 10ML INH SCH ×2 (11:36→20:40)
[2023-01-12 12:00] VITALS: BP 102/42
[2023-01-12 16:00] VITALS: BP 101/51
[2023-01-12] MEDS: POTASSIUM CHLORIDE INJ 40 MEQ in DEXTROSE 5% WATER 1,000 ML IV SCH (18:31)
[2023-01-12 20:00] VITALS: BP 107/66
[2023-01-12] MEDS: LEVOFLOXACIN 750MG PREMIX 150 ML IV SCH (20:53)
[2023-01-13] VITALS (7 sets, daily range): BP systolic 93–112; BP diastolic 35–65
[2023-01-13] MEDS: IPRATROPIUM BROMIDE (0.02%) 0.5MG/2.5ML NEB HHN SCH ×6 (00:14→21:39)
[2023-01-13] MEDS: ALBUTEROL (0.083%) 2.5MG/3ML NEB HHN SCH ×6 (00:14→21:39)
[2023-01-13] MEDS: METRONIDAZOLE 500MG TABLET PO SCH ×3 (05:58→23:01)
[2023-01-13] MEDS: METOPROLOL TARTRATE 100MG TABLET PO SCH ×3 (05:59→23:02)
[2023-01-13] MEDS: ACETYLCYSTEINE 200MG/ML 20% VIAL 10ML INH SCH (06:00)
[2023-01-13] MEDS: TRAMADOL 50MG TABLET PO PRN ×3 (06:57→13:29)
[2023-01-13] MEDS ORDERED: IRON SUCROSE COMPLEX 100 MG/5 ML ML IV SCH (07:15)
[2023-01-13] MEDS ORDERED: POTASSIUM-SODIUM PHOSPHATE POWDER PACKET PO SCH (07:15)
[2023-01-13] MEDS: BLOOD SUGAR DIAGNOSTIC STRIP TEST SCH ×4 (08:00→21:00)
[2023-01-13] MEDS: INSULIN LISPRO 100 UNITS/ML SUBCUT SCH ×4 (08:01→21:00)
[2023-01-13] MEDS: ACETYLCYSTEINE 200MG/ML 20% VIAL 4ML INH SCH ×2 (08:53→16:16)
[2023-01-13] MEDS: MUPIROCIN 2% OINT 15GM NS SCH ×2 (09:00→23:10)
[2023-01-13] MEDS ORDERED: MAGNESIUM 2 G PREMIX 50 ML IV SCH (09:00)
[2023-01-13] MEDS: DOCUSATE SODIUM SUGAR FREE 100MG/10ML UDC NG SCH ×2 (10:39→18:51)
[2023-01-13] MEDS: OMEPRAZOLE 20MG CAPSULE EXTENDED RELEASE PO SCH (10:40)
[2023-01-13] MEDS: AMIODARONE HCL 200 MG TABLET PO SCH (10:40)
[2023-01-13] MEDS: LEVOTHYROXINE SODIUM 100MCG TABLET PO SCH (10:41)
[2023-01-13] MEDS: APIXABAN 5 MG TABLET PO SCH ×2 (10:44→18:51)
[2023-01-13] MEDS: DEXAMETHASONE 1MG TABLET PO SCH (10:46)
[2023-01-13] MEDS: GUAIFENESIN 600MG ER TABLET PO SCH ×2 (10:48→23:01)
[2023-01-13 16:43] LABS: EOSINOPHILS % 0.1 % (0.0-5.0); HEMATOCRIT. 28.3 % (42.0-52.0); HEMOGLOBIN. 9.4 g/dL (14.0-18.0); LYMPHOCYTES % 7.8 % (20.0-50.0); MEAN CORPUSCULAR VOLUME 72.3 fL (80.0-94.0); MONOCYTES % 6.1 % (2.0-8.0); PLATELET 276 x1000/uL (130-400); RED BLOOD CELL COUNT 3.91 mill/uL (4.7-6.1); RED CELL DISTRIBUTION WIDTH 19.5 % (11.6-14.6)
[2023-01-13 16:58] LABS: CHLORIDE 95 mEq/L (98-107)
[2023-01-13 17:04] LABS: PHOSPHORUS 2.3 mg/dL (2.5-4.9)
[2023-01-13] MEDS ORDERED: POTASSIUM-SODIUM PHOSPHATE POWDER PACKET PO NR (18:15)
[2023-01-13] MEDS: LEVOFLOXACIN 750MG PREMIX 150 ML IV SCH (20:39)
[2023-01-13] MEDS: POTASSIUM CHLORIDE INJ 40 MEQ in DEXTROSE 5% WATER 1,000 ML IV SCH (20:40)
[2023-01-14] VITALS: BP 110/63
[2023-01-14] MEDS: IPRATROPIUM BROMIDE (0.02%) 0.5MG/2.5ML NEB HHN SCH (02:05)
[2023-01-14] MEDS: ALBUTEROL (0.083%) 2.5MG/3ML NEB HHN SCH (02:06)
[2023-01-14] MEDS: ACETYLCYSTEINE 200MG/ML 20% VIAL 4ML INH SCH (02:07)
== END 2023-01-14 03:50 | disposition home or self-care (01) | DRG 193 ==
LOC: ER 06:12 → EDBEDREQTM 10:45 → EDBEDREQSVC 10:45 → EDBEDREQ 10:45 → 7WST 13:57 → EDBEDREQTM 14:04 → EDBEDREQ 14:04 → ENRESERV 17:15 → 7WST 01-10 18:50
PROVIDERS: ADMIT Internal Medicine Endocrinology, Diabetes & Metabolism; ATTEND Internal Medicine Endocrinology, Diabetes & Metabolism
PROC: 5A09357 Assistance with Respiratory Ventilation, Less than 24 Consecutive Hours, Continuous Positive Airway Pressure (ICD-10-PCS; principal; 2023-01-10)
PROC: 5A09357 Assistance with Respiratory Ventilation, Less than 24 Consecutive Hours, Continuous Positive Airway Pressure (ICD-10-PCS; 2023-01-11)
PROC: 5A09357 Assistance with Respiratory Ventilation, Less than 24 Consecutive Hours, Continuous Positive Airway Pressure (ICD-10-PCS; 2023-01-12)
DX: J18.9 Pneumonia, unspecified organism (principal); E43 Unspecified severe protein-calorie malnutrition; J96.21 Acute and chronic respiratory failure with hypoxia; C79.51 Secondary malignant neoplasm of bone; I48.20 Chronic atrial fibrillation, unspecified; I48.92 Unspecified atrial flutter; I82.C11 Acute embolism and thrombosis of right internal jugular vein; Z68.1 Body mass index [BMI] 19.9 or less, adult; E03.9 Hypothyroidism, unspecified; E83.52 Hypercalcemia; Z20.822 Contact with and (suspected) exposure to COVID-19; K21.9 Gastro-esophageal reflux disease without esophagitis; L89.159 Pressure ulcer of sacral region, unspecified stage; K76.0 Fatty (change of) liver, not elsewhere classified; G83.21 Monoplegia of upper limb affecting right dominant side; N40.0 Benign prostatic hyperplasia without lower urinary tract symptoms; E11.9 Type 2 diabetes mellitus without complications; E78.00 Pure hypercholesterolemia, unspecified; I10 Essential (primary) hypertension; E87.6 Hypokalemia; K57.30 Diverticulosis of large intestine without perforation or abscess without bleeding; I25.10 Atherosclerotic heart disease of native coronary artery without angina pectoris; J45.909 Unspecified asthma, uncomplicated; C02.9 Malignant neoplasm of tongue, unspecified; D64.9 Anemia, unspecified; E83.39 Other disorders of phosphorus metabolism; E83.42 Hypomagnesemia; G47.33 Obstructive sleep apnea (adult) (pediatric); M10.9 Gout, unspecified; R13.10 Dysphagia, unspecified; Z92.3 Personal history of irradiation; I25.2 Old myocardial infarction; Z82.3 Family history of stroke; Z85.47 Personal history of malignant neoplasm of testis; Z92.21 Personal history of antineoplastic chemotherapy; Z85.810 Personal history of malignant neoplasm of tongue; Z74.01 Bed confinement status; Z95.5 Presence of coronary angioplasty implant and graft; Z86.718 Personal history of other venous thrombosis and embolism; Z79.899 Other long term (current) drug therapy
CPT/HCPCS: 36415; 36600; 71045; 71275; 74230; 80048; 80053; 81003; 82024; 82330; 82375; 82805; 82962; 83036; 83605; 83735; 83880; 83970; 84100; 84134; 84145; 84439; 84443; 84484; 85025; 85379; 87426; 87804; 92611; 93005; 93970; 93971; 94640; 99291; C9803; J0456; J0696; J1160; J1815; J1956; J3475; J3480; J7060; J7070; J7608; J8540; Q9967